=== PATIENT | male | born 1975 | race Caucasian/White ===

== ENCOUNTER → 2025-09-05 | Outpatient (CLI) | payer OTHER ==
[~2025-09-05] MED LIST: CEPH500 PO
[2025-09-08 20:20] LABS: VARICELLA-ZOSTER VIRUS AB,IGG 0.02 S/CO (<=0.99)
== END | disposition home or self-care (01) ==
LOC: LAB SHORT 19:27 → LAB 19:27
PROVIDERS: Family Medicine
DX: Z11.59 Encounter for screening for other viral diseases (principal)
CPT/HCPCS: 86787